=== PATIENT | female | born 1945 | race Caucasian/White ===

== ENCOUNTER 2019-10-25 06:23 | Day surgery (SDC) | payer MEDICARE ==
[2019-10-17 13:37] LABS: BASOPHILS # (AUTO) 0.1 X10'3 (0-0.2); EOSINOPHILS # (AUTO) 0.2 X10'3 (0-0.9); LYMPHOCYTES % (AUTO) 37.2 % (21-51); MEAN CORPUSCULAR HEMOGLOBIN 28.9 PG (27.0-31.0); MEAN CORPUSCULAR VOLUME 87.6 FL (78-98); MEAN PLATELET VOLUME 8.7 FL (7.4-10.4); MONOCYTES # (AUTO) 0.7 X10'3 (0-0.9); NEUTROPHILS # (AUTO) 4.1 X10'3 (1.8-7.7); NEUTROPHILS % (AUTO) 50.8 % (42-75); PRE OP HEMOGLOBIN 14.5 g/dL (12.0-16.0); PRE OP PLATELET COUNT 327 X10'3 (140-440); RED BLOOD COUNT 5.03 X10'6 (4.20-5.60); RED CELL DISTRIBUTION WIDTH 15.3 % (11.5-14.5)
[2019-10-17 13:53] LABS: ALBUMIN 3.5 G/DL (3.4-5.0); ALBUMIN/GLOBULIN RATIO 0.8 (1.1-1.5); ALKALINE PHOSPHATASE 89 IU/L (46-116); BLOOD UREA NITROGEN 13 MG/DL (7-18); CALCIUM 9.1 MG/DL (8.5-10.1); CHLORIDE 106 MMOL/L (99-107); CREATININE 0.93 MG/DL (0.40-0.90); PRE OP ALT 20 U/L (30-65); PRE OP ANION GAP 8 (8-16); PRE OP AST 16 U/L (10-37); PRE OP BILIRUB, TOTAL 0.4 MG/DL (0.0-1.0); PRE OP GLUCOSE 103 MG/DL (70-104); PRE OP POTASSIUM 4.1 MMOL/L (3.4-5.1); PRE OP SODIUM 142 MMOL/L (135-145); TOTAL PROTEIN 7.7 G/DL (6.4-8.2); eGFR 59 ML/MIN
[~2019-10-25] VITALS: Ht 167.6 cm; Wt 120.7 kg
[~2019-10-25 06:23] MED LIST: ALBU18HF2 INH; AMLO5TAB16 PO; IBUP-1986 PO; LISI40TA4 PO; MONT10TA21 PO; OMAL150S SQ; OMEP-50 PO; PARO20TA6 PO; cefazolin/dext.iso 2gm/50ml 50 ML IV ONE; famotidine 20mg tablet PO ONE; ringers solution, lacted 1,000 ML IV SCH
[2019-10-25] MEDS ORDERED: BUPIVAcaine/PF 2.5mg/ml (0.25%) 10ml vial ONE (06:45)
[2019-10-25 06:50] VITALS: BP 134/60
[2019-10-25] MEDS ORDERED: LIDOcaine 0.5% (5mg/ml) 50ml vial ONE (08:58)
[2019-10-25] MEDS ORDERED: fentaNYL/PF 50MCG/1 ML 2ML syringe ONE (09:18)
[2019-10-25] MEDS ORDERED: midazolam 2 mg/2 ml injection ONE (09:19)
[2019-10-25] MEDS ORDERED: propofol inj 20 ML IV ONE (09:26)
[2019-10-25] MEDS ORDERED: ringers solution, lacted 1,000 ML IV SCH (09:36)
[2019-10-25] MEDS ORDERED: morphine 4 MG/ML inj SYRINge IV PRN (09:40)
[2019-10-25] MEDS ORDERED: HYDROmorphone inj. 0.5 MG/0.5 ML DISP.SYRIN IV PRN ×2 (09:40)
[2019-10-25] MEDS ORDERED: meperidine/PF 25mg/ml syringe IV PRN (09:40)
[2019-10-25] MEDS ORDERED: ondansetron/PF 4mg/2ml inj IV PRN (09:40)
[2019-10-25] MEDS ORDERED: morphine 2 MG/ML inj. syringe IV PRN (09:40)
[2019-10-25] MEDS ORDERED: proCHLORperazine 10 MG/2 ml inj IV PRN (09:40)
[2019-10-25 09:45] VITALS: BP 125/56
--- NOTE | 2019-10-25 09:45 | NUR ---
Received from OR via [facility] , accompanied by Anesthesiologist MIAH and report given by Anesthesiolgist. PATIENT WITH OBED TO RIGHT WRIST AND IS CDI- ESPANA, + CAP REFLL AND SENSATION. DENIES PAIN. VSS. 20G PIV IN LEFT UE RUNNING LR AT 100. Addendum: 10/25/19 at 1000 by Nikolas Marinelli RN, RN Amended: Links added.
[2019-10-25 09:55] VITALS: BP 127/68
[2019-10-25 10:05] VITALS: BP 123/62
--- NOTE | 2019-10-25 10:21 | NUR ---
ALL DC CRITERIA HAS BEEN MET. IV TAKEN OUT WITHOUT COMPLICATIONS. ALL INSTRUCTIONS COVERED AND ALL QUESTIONS ANSWERED. DRESSINGS CDI. OUT VIA WHEELCHAIR TO PERSONAL VEHICLE WHERE PATIENT WAS SECURED IN AND DRIVEN HOME BY FAMILY. Addendum: 10/25/19 at 1024 by Nikolas Marinelli RN, RN Amended: Links added.
== END 2019-10-25 10:15 | disposition home or self-care (01) ==
LOC: PAS 06:23
PROVIDERS: ATTEND Orthopaedic Surgery Hand Surgery
DX: M67.431 Ganglion, right wrist (principal); J45.909 Unspecified asthma, uncomplicated; K21.9 Gastro-esophageal reflux disease without esophagitis; I10 Essential (primary) hypertension; F41.9 Anxiety disorder, unspecified; F32.9 Major depressive disorder, single episode, unspecified; G47.33 Obstructive sleep apnea (adult) (pediatric); M19.90 Unspecified osteoarthritis, unspecified site; Z90.49 Acquired absence of other specified parts of digestive tract; Z90.710 Acquired absence of both cervix and uterus; Z98.890 Other specified postprocedural states; Z79.899 Other long term (current) drug therapy; Z98.41 Cataract extraction status, right eye; Z98.42 Cataract extraction status, left eye
CPT/HCPCS: 25111; 36415; 80053; 82948; 85025; 93005; J2001; J2250; J2704; J3010; J3490; J7120; A4215; A4618; A7000